=== PATIENT | male | born 1960 | race Caucasian/White ===

== ENCOUNTER 2019-05-04 21:09 | Inpatient (IN) ==
[2019-05-04 22:14] LABS: Basophils # (auto) 0.02 K/uL (0-0.2); Basophils % (auto) 0.3 %; Eosinophils # (auto) 0.26 K/uL (0-0.5); Eosinophils % (auto) 4.5 %; Hematocrit (blood only) 45.4 % (42-52); Hemoglobin 15.7 g/dL (14.0-18.0); Immature Granulocytes # (auto) 0.02 K/uL (0.00-0.02); Immature Granulocytes % (auto) 0.3 %; Lymphocytes # (auto) 1.42 K/uL (1.2-3.4); Lymphocytes % (auto) 24.4 %; Mean Corpuscular Hemoglobin 30.5 pg (25-34); Mean Corpuscular Hgb Conc 34.6 g/dL (32-36); Mean Corpuscular Volume 88.3 fL (80-100); Mean Platelet Volume 8.9 fL (7.4-10.4); Monocytes # (auto) 0.46 K/uL (0.11-0.59); Monocytes % (auto) 7.9 %; Neutrophils # (auto) 3.63 K/uL (1.4-6.5); Neutrophils % (auto) 62.6 %; Platelet Count 375 K/uL (130-400); RDW Coefficient of Variation 13.3 % (11.5-14.5); RDW Standard Deviation 42.7 fL (36.4-46.3); Red Blood Count 5.14 M/uL (4.7-6.1); White Blood Count 5.81 K/uL (4.8-10.8)
[2019-05-04 22:20] LABS: Appearance Urine Cloudy (Clear); Bacteria Urine Automated Negative (Negative); Bilirubin Urine Negative (Negative); Blood Urine Negative (Negative); Color Urine Yellow; Epithelial Cell Urine Auto 0-5 /lpf (0-5); Glucose Urine UA Negative (Negative); Ketones Urine Negative (Negative); Leukocyte Esterase Urine Negative (Negative); Nitrite Urine Negative (Negative); Protein Urine Negative (Negative); RBC Urine Automated 0-4 /hpf (0-4); Specific Gravity Urine 1.013 (1.000-1.030); Urobilinogen Urine Negative (Negative); WBC Urine Automated 0 /hpf (0-5); pH Urine 7.5 (4.5-7.5)
[2019-05-04 22:30] LABS: Albumin Level 4.1 gm/dl (3.4-5.0); BUN Creatinine Ratio 8.2 (10-20); Calcium 9.2 mg/dl (8.5-10.1); Creatinine Clr Calc Pharmacy 57.3 ml/min; Est GFR (African American) 71.6; Est GFR (Non-African American) 61.8; Potassium 3.7 mmol/L (3.5-5.1)
[2019-05-04 22:40] LABS: Albumin Globulin Ratio 1.1 (0.9-2); Bilirubin,Total 0.6 mg/dl (0.2-1); Globulin 3.7 gm/dl (2.5-4.0); Thyroid Stimulating Hormone 1.5 uIu/ml (0.300-4.500); Total Protein 7.8 gm/dl (6.4-8.2)
[2019-05-04 22:44] LABS: Amphetamines+Metham, Urine Neg (Neg); Barbiturates, Urine Neg (Neg); Benzodiazepine, Urine Neg (Neg); Cocaine, Urine Neg (Neg); MDMA (Ecstacy), Urine Neg (Neg); Methadone, Urine Neg (Neg); Opiate, Urine Neg (Neg); Phencyclidine, Urine Neg (Neg)
[2019-05-04 22:47] LABS: Acetaminophen < 2 ug/ml (10-30); Salicylate < 1.7 mg/dl (2.8-20)
--- NOTE | 2019-05-04 23:52 | Emergency Department Note ---
Entered by Lizeth Lieberman acting as a scribe for History of Present Illness General Chief complaint: Anxiety Stated complaint: ANXIETY Time Seen by Provider: 05/04/19 21:28 Source: patient and family (brother and sister) History of Present Illness Onset (ago): week(s) 1 Location: head Pain Consistency: + other (since his mother ) Quality: + other (anxiety) Associated symptoms: + other (Positive thoughts of SI with a plan (denies intent to act on these thoughts). ) The patient is a 59 year old male who presents to the ED with complaints of anxiety. He is accompanied by his brother and sister who report their mother recently 1 week ago today. 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 Since their mother's passing, his siblings reports he "changed overnight." His sister states last night she received a text from her brother stating I feel like I am not going to make it. His siblings believe he may have some thoughts of suicidal ideations. His sister reports he has tried antidepressants in the past. His siblings state that their father has a hx of going into catatonic states and they are worried the patient is beginning to go through the same thing. The patient states 40 years ago, he was seen at the hospital for hyponatremia. At this same time, he states it was recommended he come into the hospital for psychiatric care but he refused. He states since 1994, he has been under inc reased stress. He reports in 1994, his sister was diagnosed with schizophrenia and it caused his father to go into a catatonic state. The patient states he has had similar episodes like today in the past but he "could always push himself out of it." He reports since his mother's passing, he entered a "physical state, like he was going to pass away." The patient states he has had suicidal thoughts since he was young, but did not act on them because "his mother needed him." He states he does not think he would act on these thoughts because he "could not do it to his family." He reports his plan would be to shoot himself with a handgun, like his uncle did. The patient does not own a gun. Home Medications Home Medications Medication Instructions Recorded Confirmed Type ondansetron 4 mg PO UD PRN 05/18/18 05/04/19 History rizatriptan 5 mg PO UD PRN 09/04/18 05/04/19 History fluticasone furoate [Arnuity 1 inh INHALATION DAILY 03/16/19 05/04/19 History Ellipta] Allergies Allergy/AdvReac Type Severity Reaction Status Date / Time No Known Allergies Allergy Verified 03/16/19 04:13 Past Med/Surg History Medical History (Updated 05/05/19 @ 01:40 by Lizeth Lieberman) Anxiety Asthma Migraines Surgical History No pertinent past surgical history Family History Other FH: migraines Social History Preferred Language: [place] Feels Safe at Home: Yes Smoking Status: Never smoker Review of Systems See HPI for pertinent positives & negatives. and A total of 10 systems reviewed and were otherwise negative Physical Exam Vital Signs Vital Signs - 24 hr 05/04/19 21:13 05/05/19 00:55 Temperature 36.6 C Temperature Source Oral Pulse Rate 90 Pulse Rate [Right Finger] 65 Respiratory Rate 20 16 Respiratory Effort / Characteristics Non-Labored Spontaneous Non-Labored Spontaneous Respiratory Depth Normal Normal Respiratory Pattern Regular Regular Blood Pressure 186/94 H Blood Pressure [Left Arm] 132/85 Blood Pressure Mean 124 Blood Pressure Mean [Left Arm] 100 Blood Pressure Position Sitting Blood Pressure Position [Left Arm] Lying Pulse Oximetry 99 100 Oxygen Delivery Method Room Air Room Air Sepsis Recent Fever Within 48 Hours No Sepsis Action Taken by Nursing No Action Required GENERAL: Patient is in no acute distress. HEENT: No acute trauma, normocephalic atraumatic, mucous membranes moist, no nasal congestion, no scleral icterus. NECK: No stridor, no adenopathy, no meningismus, trachea is midline. LUNGS: Clear to auscultation bilaterally, no wheeze, no rhonchi, breath sounds equal. HEART: Without murmurs gallops or rubs, regular rate and rhythm. ABDOMEN: Soft, nontender, bowel sounds positive, no hernias, no peritonitis. EXTREMITIES: No cyanosis or edema, full range of motion of all the joints without pain or difficulty, no signs for acute trauma. NEUROLOGIC: Oriented x 3, no acute motor or sensory deficits, no focal weakness. PSYCH: Slow speaking. Cooperative, voluntary. Admits to suicidal ideations with no real plan or intent SKIN: No rash, no jaundice, no diaphoresis. Course Course 2129: Past medical records reviewed. The patient was evaluated in room A5. A complete history and physical exam was performed. 0030: I updated him on his labs at this time. [id number]: The patient will be further evaluated at [facility]. Administered Medications Medical Decision Making Differential Diagnosis Differential diagnosis: Etiologies such as drug and alcohol abuse, psychosis, schizophrenia, depression, anxiety, thyroid disorder, situational depression, as well as others were entertained. Medical Records Attestation: I reviewed the patient's medical records. Home Medications Current Medication List: was personally reviewed by me Laboratory Data Attestation: I reviewed the patient's lab results. Result diagrams: 05/04/19 22:02 05/04/19 22:02 Lab Results 05/04/19 05/04/19 05/04/19 Range/Units 21:35 21:35 22:02 WBC 5.81 (4.8-10.8) K/uL RBC 5.14 (4.7-6.1) M/uL Hgb 15.7 (14.0-18.0) g/dL Hct 45.4 (42-52) % MCV 88.3 (80-100) fL MCH 30.5 (25-34) pg MCHC 34.6 (32-36) g/dL RDW Std Deviation 42.7 (36.4-46.3) fL RDW Coeff of Jovan 13.3 (11.5-14.5) % Plt Count 375 (130-400) K/uL MPV 8.9 (7.4-10.4) fL Immature Gran % (Auto) 0.3 % Neut % (Auto) 62.6 % Lymph % (Auto) 24.4 % [place] % (Auto) 7.9 % Eos % (Auto) 4.5 % Baso % (Auto) 0.3 % Immature Gran # (Auto) 0.02 (0.00-0.02) K/uL Neut # (Auto) 3.63 (1.4-6.5) K/uL Lymph # (Auto) 1.42 (1.2-3.4) K/uL [place] # (Auto) 0.46 (0.11-0.59) K/uL Eos # (Auto) 0.26 (0-0.5) K/uL Baso # (Auto) 0.02 (0-0.2) K/uL Sodium (136-145) mmol/L Potassium (3.5-5.1) mmol/L Chloride (98-107) mmol/L Carbon Dioxide (21-32) mmol/L Anion Gap (3-11) BUN (7-18) mg/dl Creatinine (0.6-1.4) mg/dl Est Cr Clr Drug Dosing ml/min Est GFR ( Amer) Est GFR (Non-Af Amer) BUN/Creatinine Ratio (10-20) Glucose (70-99) mg/dl Calcium (8.5-10.1) mg/dl Total Bilirubin (0.2-1) mg/dl AST (15-37) U/L ALT (12-78) U/L Alkaline Phosphatase (45-117) U/L Total Protein (6.4-8.2) gm/dl Albumin (3.4-5.0) gm/dl Globulin (2.5-4.0) gm/dl Albumin/Globulin Ratio (0.9-2) TSH (0.300-4.500) uIu/ml Urine Color Yellow Urine Appearance Cloudy A (Clear) Urine pH 7.5 (4.5-7.5) Ur Specific [place] 1.013 (1.000-1.030) Urine Protein Negative (Negative) Urine Glucose (UA) Negative (Negative) Urine Ketones Negative (Negative) Urine Blood Negative (Negative) Urine Nitrite Negative (Negative) Urine Bilirubin Negative (Negative) Urine Urobilinogen Negative (Negative) Ur Leukocyte Esterase Negative (Negative) Urine WBC (Auto) 0 (0-5) /hpf Urine RBC (Auto) 0-4 (0-4) /hpf U Hyaline Cast (Auto) 1-5 (0-5) /lpf U Epithel Cells (Auto) 0-5 (0-5) /lpf Urine Bacteria (Auto) Negative (Negative) Salicylates (2.8-20) mg/dl Urine Opiates Screen Neg (Neg) Ur Methadone, Qual Neg (Neg) Acetaminophen (10-30) ug/ml Urine Barbiturates Neg (Neg) Ur Phencyclidine (PCP) Neg (Neg) U Amphetamin/Meth Scrn Neg (Neg) MDMA (Ecstasy) Screen Neg (Neg) U Benzodiazepines Scrn Neg (Neg) Ur Cocaine Metabolite Neg (Neg) U Marijuana (THC) Screen Neg (Neg) Ethyl Alcohol mg/dL (0-3) mg/dl 05/04/19 05/04/19 05/04/19 Range/Units 22:02 22:02 22:02 WBC (4.8-10.8) K/uL RBC (4.7-6.1) M/uL Hgb (14.0-18.0) g/dL Hct (42-52) % MCV (80-100) fL MCH (25-34) pg MCHC (32-36) g/dL RDW Std Deviation (36.4-46.3) fL RDW Coeff of Jovan (11.5-14.5) % Plt Count (130-400) K/uL MPV (7.4-10.4) fL Immature Gran % (Auto) % Neut % (Auto) % Lymph % (Auto) % [place] % (Auto) % Eos % (Auto) % Baso % (Auto) % Immature Gran # (Auto) (0.00-0.02) K/uL Neut # (Auto) (1.4-6.5) K/uL Lymph # (Auto) (1.2-3.4) K/uL [place] # (Auto) (0.11-0.59) K/uL Eos # (Auto) (0-0.5) K/uL Baso # (Auto) (0-0.2) K/uL Sodium 138 (136-145) mmol/L Potassium 3.7 (3.5-5.1) mmol/L Chloride 103 (98-107) mmol/L Carbon Dioxide 27 (21-32) mmol/L Anion Gap 8.0 (3-11) BUN 10 (7-18) mg/dl Creatinine 1.25 (0.6-1.4) mg/dl Est Cr Clr Drug Dosing 57.3 ml/min Est GFR ( Amer) 71.6 Est GFR (Non-Af Amer) 61.8 BUN/Creatinine Ratio 8.2 L (10-20) Glucose 125 H (70-99) mg/dl Calcium 9.2 (8.5-10.1) mg/dl Total Bilirubin 0.6 (0.2-1) mg/dl AST 17 (15-37) U/L ALT 18 (12-78) U/L Alkaline Phosphatase 67 (45-117) U/L Total Protein 7.8 (6.4-8.2) gm/dl Albumin 4.1 (3.4-5.0) gm/dl Globulin 3.7 (2.5-4.0) gm/dl Albumin/Globulin Ratio 1.1 (0.9-2) TSH 1.500 (0.300-4.500) uIu/ml Urine Color Urine Appearance (Clear) Urine pH (4.5-7.5) Ur Specific [place] (1.000-1.030) Urine Protein (Negative) Urine Glucose (UA) (Negative) Urine Ketones (Negative) Urine Blood (Negative) Urine Nitrite (Negative) Urine Bilirubin (Negative) Urine Urobilinogen (Negative) Ur Leukocyte Esterase (Negative) Urine WBC (Auto) (0-5) /hpf Urine RBC (Auto) (0-4) /hpf U Hyaline Cast (Auto) (0-5) /lpf U Epithel Cells (Auto) (0-5) /lpf Urine Bacteria (Auto) (Negative) Salicylates < 1.7 L (2.8-20) mg/dl Urine Opiates Screen (Neg) Ur Methadone, Qual (Neg) Acetaminophen < 2 L (10-30) ug/ml Urine Barbiturates (Neg) Ur Phencyclidine (PCP) (Neg) U Amphetamin/Meth Scrn (Neg) MDMA (Ecstasy) Screen (Neg) U Benzodiazepines Scrn (Neg) Ur Cocaine Metabolite (Neg) U Marijuana (THC) Screen (Neg) Ethyl Alcohol mg/dL < 3.0 (0-3) mg/dl ECG Data Attestation: I personally reviewed and interpreted this ECG as follows: Indication: + other (anxiety) Rate (beats per minute): 71 Rhythm: + sinus rhythm ECG ST segments: no ST elevation ECG Findings: + PVCs and + Other (QTC is 423) Blood Pressure Blood Pressure Findings: Elevated blood pressure Blood Pressure Disposition: Referred to patients primary care provider [facility] Narrative There is no leukocytosis or concerning anemia. No significant electrolyte abnormality or kidney failure. No worrisome liver enzyme elevation. The patient appears to be in a euthyroid state. Urinalysis does not show evidence for infection. Aspirin, Tylenol and alcohol levels were undetectable. Urine tox was negative. EKG shows a sinus rhythm with PVCs, no acute ischemia. The patient presents with increased depression and some suicidal ideation. He has been stressed by the of his mother. The patient is cooperative, he is voluntary. Hospitalization for his depression and suicidal ideation was thought warranted. The patient was been seen by psychiatry case management. A referral was made to [facility] [address] the patient has been accepted. The patient is being admitted voluntarily. Impression & Plan Depression, Suicidal ideation Discharge Plan Visit Data Chief Complaint: Anxiety Stated Complaint: ANXIETY ED Provider: Adriano Townsend Discharge Problem: Depression, Suicidal ideation Patient Disposition: Transfer Behavioral Health Fac Forms Stand Alone Forms: My [facility], Suicide Prevention Resources Prescriptions Prescriptions: No Action ondansetron 4 mg Tablet,Disintegrating 4 mg PO UD PRN (Reason: Nausea) RF: 0 rizatriptan 5 mg tablet,disintegrating 5 mg PO UD PRN (Reason: Migraine Headache) RF: 0 Arnuity Ellipta 100 mcg/actuation blister with device 1 inh inhalation DAILY RF: 0 Referrals Referrals: Andrew Naik MD [Primary Care Provider] - Discharge Problem: Depression Qualifiers: Depression Type: unspecified Qualified Code(s): F32.9 - Major depressive disorder, single episode, unspecified The scribe's documentation has been prepared under my direction and personally reviewed by me in its entirety. I confirm that the note above accurately reflects all work, treatment, procedures, and medical decision making performed by me.
[2019-05-05] MEDS ORDERED: MAGNESIUM HYDROXIDE SUSP 30 ML UDC PO PRN (02:44)
[2019-05-05] MEDS ORDERED: ACETAMINOPHEN 325 MG TAB PO PRN (02:44)
[2019-05-05] MEDS ORDERED: BISMUTH SUBSALICYLATE PER ML OMNICELL CHARGE PO PRN (02:44)
[2019-05-05] MEDS ORDERED: SODIUM CHLORIDE 0.65% NA SOLN 45 ML (OCEAN) PRN (02:44)
[2019-05-05] MEDS ORDERED: hydrOXYzine HCl 10 MG TAB PO PRN (02:44)
[2019-05-05] MEDS ORDERED: ALUMINUM/MAGNESIUM SUSP 30 ML UDC PO PRN (02:44)
[2019-05-05] MEDS ORDERED: ONDANSETRON 4 MG OD TAB PO PRN (15:16)
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
[2019-05-05] MEDS: MIRTAZAPINE TAB 15 MG TAB PO SCH (21:54)
[2019-05-06] MEDS: RIZATRIPTAN BENZOATE 10 MG TAB PO PRN (03:46)
--- NOTE | 2019-05-06 13:11 | Psychiatric Progress Note ---
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 He has had significant limitations in life due to the significant social anxiety and interpersonal ramifications of this and so has limited supports outside of his siblings and previously mother, which per Psych Clinic notes were also strained relationships. He has such significant anxiety that he feels he is falling apart and "feel like I am not going to make it" which is consistent with a psychotic personality structure under duress consistent with previously identified annihilation anxiety. The patient had SI chronically and as noted above although he stated a potential plan to use a gun to shoot himself he denies intention to acquire a gun. He does agree he may benefit from consideration of meds but has significant reservations given his prior lack of benefit from some meds and side effects from others. He is invested in his outpatient therapy relationship and plans to continue. We would need to inquire but it is likely he may be able to return to see Dr Soni for medication management after discharge. [facility] psychiatric admission remains medically necessary. (1) Suicidal ideation: 05/05 Inpatient care is least restrictive and most appropriate setting for his care He has submitted a 72hour notice and although I wish he would full agree to the LOS on his treatment plan of 4-6days he is not being unreasonable in his thoughts today. Given he does not have acts of furtherance and is able to share rationally what he is thinking and feeling and how he is making his decisions, I will not pursue a 302 at this time, but will use the next 3 days to monitor his status, offer treatment available on the unit and work with team to assure he has established aftercare. 05/06 - Denies present SI, recommending family meeting to discuss aftercare and safety planning (2) Depression: 05/05 MDD recurrent and Anxiety: Discussed remeron with r/b/se/a to include target his sleep and depression, off label may help anxiety and appetite, but need to monitor for weight gain, oversedation, pulse, and BP. discussed s/sx of serotonin syndrome in layman's terms and noted this was an urgent matter he would need to tell a medical professional about promptly if they emerged. Will continue to monitor for s/sx of catatonia (he is not demonstrating waxy flexibility and no posturing, no full Thought blocking, and vitals are not optimal but not unstable) Noted to patient if these s/sx emerged we would consider addition of ativan. 05/06 - Pt agreeable to continue mirtazapine at 7.5mg - as he feels headache last evening and grogginess this morning is due to medication - We reviewed side effect possibilities, but also that there may be multiple explanations for the symptoms reported above - pt agreeable to trial the medication for a bit longer (3) Anxiety: 05/05 - See treatment for depression as above 05/06 - Pt requesting clonazepam as it was felt to be helpful for several family members - Hydroxyzine availability was reviewed and patient was encouraged to utilize this medication for anxiety as needed (4) Migraines: 05/05 - continue outpatient meds (5) Asthma: 05/05 - Continue prn inhaler Risk Factors Assessment Male: Yes : Yes Do You Have Access To A Gun?: No Health Problems: Yes Mental Health Diagnoses: Yes Substance Use Disorders: No Previous Attempt: No Family History of Suicide: Yes Previous Psychiatric Hospitalization: No Hopelessness: No Smoker: No Protective Factors Assessment Sikh Beliefs: No : No Responsible for Young Children: No 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 He lives in his mother's home who is recently 1 week ago, and has a history of schizoid personality disorder, avoidant personality disorder, social anxiety and persistent depressive disorder. Pt was admitted on 05/05/19 01:37 on a 201 voluntary commitment for worsening anxiety and distress with associated suicidal ideations with thoughts to harm self with a gun, and text sent to his sister indicating distress "feel like I am not going to make it." Chief Complaint "I was feeling a little headachey last night." Review of Systems Notes Constitutional: reports headache last evening HEENT: mildly exacerbated tinnitus today Cardiovascular: denied Respiratory: denied Gastrointestinal: denied Neurological: denied Psychiatric: denies symptoms other than stated above Total of at least 10 systems reviewed, pertinent positives as above and in HPI. Sleep Information Total Hours of Sleep: 6.5 Sleep Comments: pt on q-15 minute checks Meal Information Percent Meal Consumed - Breakfast: 100 Percent Meal Consumed - Lunch: 100 Percent Meal Consumed - Dinner: 100 Subjective Subjective Patient was seen & assessed and interval progress reviewed with nursing and social work. Staff reports the patient submitted a 72-hour notice yesterday morning, which expires 05/08 at 10:27 AM. Patient has not yet participated in a family meeting with outpatient supports. He did verbalize to staff a migraine last evening, for which she received as needed medications. Patient was agreeable with a referral for a caser shoe parts, and is hoping to return to Dr. Soni for outpatient psychiatry. Patient was seen today to assess progress since admission. He reports that he was "headachey" last evening, believing this is related to the medication. He also admits to exacerbation of tinnitus. In his conversation, patient states that multiple medications have caused the side effects in the past. He initially requested to discontinue mirtazapine, but was agreeable to a conversation about the medication first. Patient was informed that there may be numerous explanations for his physical concerns last evening, and that there is limited evidence after only 1 dose to suggest that the symptoms will be persistent as he continues mirtazapine. Patient does admit that he "semi-slept okay" last evening and does feel that the addition of mi rtazapine may have been helpful for his sleep. Although the patient is not agreeable with considering titration of mirtazapine, he was agreeable with continuing a dose of 7.5 mg for another evening. Patient denies current suicidal ideation, but admits to ongoing anxiety. He does feel that he has adequate support outside of the hospital, and was encouraged to engage them in a meeting to discuss safety and discharge planning. Patient was given information regarding his 72-hour notice, inability to rescind the noticed should he feel additional time for treatment is necessary. Patient reports that although the anxiety is ongoing, "I feel as though the trajectory is good." Patient believes that by the time his 72-hour notice expires he will have adequate supports in place, and a plan with which to move forward. Patient denies other needs or concerns today. Physical Exam Psychiatric Orientation: alert, oriented x 3 and cooperative Apperance: appropriately dressed, appropriately groomed and appeared stated age Eye Contact: good eye contact Motor Behavior: steady gait and station and no abnormal motor movements Speech: normal rate/rhythm/volume of speech Affect: + anxious affect, + blunted affect and mood congruent with affect Mood: + anxious mood (reporting concern for cause of several physical complaints) Thought Process: goal directed thought process, clear/coherent thought process and thought association intact Thought Content: + preoccupation (with potential medication side effects); no hopelessness Suicidal Thoughts: denies suicidal thoughts and denies suicidal intent Homicidal Thoughts: denies homicidal thoughts Hallucinations: no auditory hallucinations and no visual hallucinations Cognition: attention grossly intact and language grossly intact Insight: + fair insight Judgement: + fair judgement Vital Signs (Past 24 Hours) Last Vital Signs Temp 36.8 C 05/06/19 06:46 Pulse 79 05/06/19 06:47 Resp 18 05/06/19 06:46 BP 125/83 05/06/19 06:47 Pulse Ox 96 05/05/19 02:16 Results & Data Current Inpatient Medications Current Inpatient Medications: Current Inpatient Medications Acetaminophen (Tylenol) 650 mg PO Q4H PRN PRN Reason: Headache or Minor Fever Stop: 06/04/19 02:43 Al Hydrox/Mg Hydrox/Simethicone (Maalox) 30 ml PO Q4H PRN PRN Reason: GI Upset Stop: 06/04/19 02:43 Bismuth Subsalicylate (Kaopectate) 15 ml PO PRN PRN PRN Reason: Loose Stool Stop: 06/04/19 02:43 Hydroxyzine HCl (Vistaril) 50 mg PO HSZ PRN PRN Reason: Insomnia Stop: 06/04/19 02:43 Hydroxyzine HCl (Vistaril) 25 mg PO Q4H PRN PRN Reason: Anxiety Stop: 06/04/19 02:43 Magnesium Hydroxide (Milk Of Magnesia) 30 ml PO DAILY PRN PRN Reason: Constipation Stop: 06/04/19 02:43 Mirtazapine (Remeron) 7.5 mg PO HS MARQUEZ Stop: 06/04/19 21:59 Last Admin: 05/05/19 21:54 Dose: 7.5 mg Documented by: Miscellaneous (Order Awaiting Action) 1 ea N/A QS MARQUEZ Stop: 06/04/19 15:59 Last Admin: 05/06/19 09:30 Dose: Not Given Documented by: Ondansetron HCl (Zofran Odt) 4 mg PO Q6H PRN PRN Reason: Nausea Stop: 06/04/19 15:15 Rizatriptan Benzoate (Maxalt) 10 mg PO DAILY PRN PRN Reason: MIGRAINE HEADACHE Stop: 06/04/19 15:08 Last Admin: 05/06/19 03:46 Dose: 10 mg Documented by: Sodium Chloride ([place] Nasal) 1 - 2 sprays NA PRN PRN PRN Reason: Nasal Dryness/Congestion Stop: 06/04/19 02:43 Mental Health & Subst Abuse Tx Psychiatrist Name of Psychiatrist: Dr. Soni [facility] Psych Clinic Psychiatrist's Therapist Name of Therapist: RUSSELL [facility], Sunday at 2pm Therapist's Date of Therapist Appointment: 05/13/19 Time of Therapist Appointment: 2:00pm Night Club Manager Name of Night Club Manager: [employer] Phone Number for Night Club Manager: [phone] Post Discharge Appointments Primary Care Physician [facility] Contact Information Discharge Discharge Address: [address] [place] [address] HELEN Alexandra [id number] (1) Depression Depression Type: unspecified Qualified Code(s): F32.9 - Major depressive disorder, single episode, unspecified
[2019-05-06] MEDS: MIRTAZAPINE TAB 15 MG TAB PO SCH (20:38)
[2019-05-07] MEDS: RIZATRIPTAN BENZOATE 10 MG TAB PO PRN (02:50)
--- NOTE | 2019-05-07 10:57 | Psychiatric Progress Note ---
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 He has had significant limitations in life due to the significant social anxiety and interpersonal ramifications of this and so has limited supports outside of his siblings and previously mother, which per Psych Clinic notes were also strained relationships. He has such significant anxiety that he feels he is falling apart and "feel like I am not going to make it" which is consistent with a psychotic personality structure under duress consistent with previously identified annihilation anxiety. The patient had SI chronically and as noted above although he stated a potential plan to use a gun to shoot himself he denies intention to acquire a gun. He does agree he may benefit from consideration of meds but has significant reservations given his prior lack of benefit from some meds and side effects from others. He is invested in his outpatient therapy relationship and plans to continue. We would need to inquire but it is likely he may be able to return to see Dr Soni for medication management after discharge. [facility] psychiatric admission remains medically necessary until aftercare can be established with prescriber, and therapy appt confirmed and family meeting as his living situation and rel with sister is a major source of stress and potential trigger for decompensation (1) Suicidal ideation: 05/05 Inpatient care is least restrictive and most appropriate setting for his care He has submitted a 72hour notice and although I wish he would full agree to the LOS on his treatment plan of 4-6days he is not being unreasonable in his thoughts today. Given he does not have acts of furtherance and is able to share rationally what he is thinking and feeling and how he is making his decisions, I will not pursue a 302 at this time, but will use the next 3 days to monitor his status, offer treatment available on the unit and work with team to assure he has established aftercare. 05/06 - Denies present SI, recommending family meeting to discuss aftercare and safety planning 05/07 - seems fixated on precision in details so he hesitates to say precisely how often SI enters his mind but is quick to say it is his baseline the last 2 days of intermittant thoughts, that he has no overt intention or plan of acting on and is future oriented. I would like christian to remain longer inpateint than 05/08/19 at 1027 when his 72hour notice expires for further support and assessment of tolerability of meds, however there are no acts of furtherance and no criteria as of today's assessment for 302 petition. We have raised question of signing in volunatrily for longer treatment, but patient declines. He is aware that if the administrative aspects of discharge (e.g. paperwork, securing precise aftercare) superceded 1027 he may be asked to consider signing in voluntairly to allow those details to be completed and is very reasonable about this concept in the rare case it arises, but that every effort would be made to krish 1027 discharge unless further evidence of danger to self or others arises or he signs in for longer treatment voluntarily. (2) Depression: 05/05 MDD recurrent and Anxiety: Discussed remeron with r/b/se/a to include target his sleep and depression, off label may help anxiety and appetite, but need to monitor for weight gain, oversedation, pulse, and BP. discussed s/sx of serotonin syndrome in layman's terms and noted this was an urgent matter he would need to tell a medical professional about promptly if they emerged. Will continue to monitor for s/sx of catatonia (he is not demonstrating waxy flexibility and no posturing, no full Thought blocking, and vitals are not optimal but not unstable) Noted to patient if these s/sx emerged we would consider addition of ativan. 05/06 - Pt agreeable to continue mirtazapine at 7.5mg - as he feels headache last evening and grogginess this morning is due to medication - We reviewed side effect possibilities, but also that there may be multiple explanations for the symptoms reported above - pt agreeable to trial the medication for a bit longer 05/07 - TOBISA prone on remeron but not having overt migraine, denies other side effects and is willing to continue at this time to his outpatient setting. Would ask team to discharge wtih 7.5mg pill so that if he has ongoing SE he could reduce to 3.75mg dose prior to f/u appt with Dr Soni rather than stopping it. Further mentioned option of loxapine in the future, however low doses are presently on national shortage so this is not an immediate option but may be in future when low doses are again available for slow and low titration. (3) Anxiety: 05/05 - See treatment for depression as above 05/06 and 05/07 - Pt requesting clonazepam as it was felt to be helpful for several family members - Hydroxyzine availability was reviewed and patient was encouraged to utilize this medication for anxiety as needed (4) Migraines: 05/05 - continue outpatient meds (5) Asthma: 05/05 - Continue prn inhaler Risk Factors Assessment Male: Yes : Yes Do You Have Access To A Gun?: No Health Problems: Yes Mental Health Diagnoses: Yes Substance Use Disorders: No Previous Attempt: No Family History of Suicide: Yes Previous Psychiatric Hospitalization: No Hopelessness: No Smoker: No Protective Factors Assessment Yarsani Beliefs: No : No Responsible for Young Children: No 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 He lives in his mother's home who is recently 1 week ago, and has a history of schizoid personality disorder, avoidant personality disorder, social anxiety and persistent depressive disorder. Pt was admitted on 05/05/19 01:37 on a 201 voluntary commitment for worsening anxiety and distress with associated suicidal ideations with thoughts to harm self with a gun, and text sent to his sister indicating distress "feel like I am not going to make it." Chief Complaint "I am okay". Review of Systems Sleep Information Total Hours of Sleep: 4.25 Sleep Comments: medicated for migraine headache management Meal Information Percent Meal Consumed - Breakfast: 100 Percent Meal Consumed - Lunch: 100 Percent Meal Consumed - Dinner: 100 Subjective Subjective Patient was seen & assessed and interval progress reviewed with treatment team. Rivas had TOBIAS Sunday into Sunday took m axalt, agreed to continue remeron 7.5mg and had mild TOBIAS through the day yesterday, upon waking to urinate last night he requested medication for TOBIAS as it was lingering "but not my full blown migraine." He notes that this lingering type of TOBIAS makes him feel "fragile" and he has to be mindful of smells and light and noise to avoid progression to a migraine, "just something that is in the background." However overall he feels somewhat improved meaning that compared to Sunday when he felt "like I am not going to make it," falling apart, hopeless and slowed mentally and physically, today his mood is 7/10 (would be 8/10 if he was not socially anxious on unit and due to anticipation anxiety of the family meeting today). He states he feels less slowed physically and is again "myself, socially anxious and smiling and intensely compassionate inside" sharing his concern for some patients here who have major medical concerns impacting their treatment, and yet he is not actively suicidal "still have my usual thoughts about suicide but not as intense, not as constant," and denies intention or plan, "my baseline with anxiety and mood and I have had the suicidal thoughts my whole life." He feels anxious in groups "my usual" but is participating, he feels "the good food here is helping," but has high anxiety about family meeting and prospect of living in a house wtih his sister. He told social work that he wondered if they would need a literal physical barrier put up to facilitate the living arrangment with clear separation. He denies other SE than residual TOBIAS today and "I hope it will go away." He states he is willing to persist to see if he gets further relief from it and "I can talk to Dr Soni about it too" He denies other physical concerns today. Physical Exam Psychiatric Orientation: alert and oriented x 3 Apperance: appropriately dressed Eye Contact: good eye contact Motor Behavior: steady gait and station he is more fluid today in his thoughts and his movements speech is regular rate and more fluid today, shy tone with sociallly anxious smile/laugh at times indicating embarassment like quality, but appropriate volume and rythm Affect: + anxious affect Mood: + anxious mood Thought Process: goal directed thought process and linear/logical thought process more spontaneous and fluid today compared to my interaction wtih him on Sunday, and more content in his spontaneous thoughts Thought Content: reality based without delusions has passive SI intermittantly lifelong feels he is at his baseline now and eda es intention or plan, does not give a specific frequency or quantity of his SI today "just happens" Homicidal Thoughts: denies homicidal thoughts Hallucinations: no auditory hallucinations and no visual hallucinations Cognition: recent memory grossly intact Estimated Intelligence: average estimated intelligence Insight: good insight Judgement: good judgement Vital Signs (Past 24 Hours) Last Vital Signs Temp 36.7 C 05/07/19 06:37 Pulse 88 05/07/19 06:37 Resp 18 05/07/19 06:37 BP 136/81 05/07/19 06:37 Pulse Ox 96 05/05/19 02:16 Results & Data Current Inpatient Medications Current Inpatient Medications: Current Inpatient Medications Acetaminophen (Tylenol) 650 mg PO Q4H PRN PRN Reason: Headache or Minor Fever Stop: 06/04/19 02:43 Al Hydrox/Mg Hydrox/Simethicone (Maalox) 30 ml PO Q4H PRN PRN Reason: GI Upset Stop: 06/04/19 02:43 Bismuth Subsalicylate (Kaopectate) 15 ml PO PRN PRN PRN Reason: Loose Stool Stop: 06/04/19 02:43 Hydroxyzine HCl (Vistaril) 50 mg PO HSZ PRN PRN Reason: Insomnia Stop: 06/04/19 02:43 Hydroxyzine HCl (Vistaril) 25 mg PO Q4H PRN PRN Reason: Anxiety Stop: 06/04/19 02:43 Magnesium Hydroxide (Milk Of Magnesia) 30 ml PO DAILY PRN PRN Reason: Constipation Stop: 06/04/19 02:43 Mirtazapine (Remeron) 7.5 mg PO HS MARQUEZ Stop: 06/04/19 21:59 Last Admin: 05/06/19 20:38 Dose: 7.5 mg Documented by: Miscellaneous (Order Awaiting Action) 1 ea N/A QS MARQUEZ Stop: 06/04/19 15:59 Last Admin: 05/06/19 17:08 Dose: Not Given Documented by: Ondansetron HCl (Zofran Odt) 4 mg PO Q6H PRN PRN Reason: Nausea Stop: 06/04/19 15:15 Rizatriptan Benzoate (Maxalt) 10 mg PO DAILY PRN PRN Reason: MIGRAINE HEADACHE Stop: 06/04/19 15:08 Last Admin: 05/07/19 02:50 Dose: 10 mg Documented by: Sodium Chloride ([place] Nasal) 1 - 2 sprays NA PRN PRN PRN Reason: Nasal Dryness/Congestion Stop: 06/04/19 02:43 Mental Health & Subst Abuse Tx Psychiatrist Name of Psychiatrist: Dr. Soni [facility] Psych Clinic Psychiatrist's Therapist Name of Therapist: Marta Quintero [facility] Psych Clinic, Sunday at 2pm Therapist's Date of Therapist Appointment: 05/13/19 Time of Therapist Appointment: 2:00pm Roll Bucker Name of Roll Bucker: [employer] Phone Number for Roll Bucker: [phone] Post Discharge Appointments Primary Care Physician Name Of Family Doctor: Dr. Andrew Jordan [facility] Primary Care Contact Information Discharge Discharge Address: [address] [place] [address] [place] [phone] (1) Depression Depression Type: unspecified Qualified Code(s): F32.9 - Major depressive disorder, single episode, unspecified
[2019-05-07] MEDS: MIRTAZAPINE TAB 15 MG TAB PO SCH (22:05)
[2019-05-08] MEDS: RIZATRIPTAN BENZOATE 10 MG TAB PO PRN (09:52)
--- NOTE | 2019-05-08 11:10 | Discharge Summary ---
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 Forms: My [facility] [employer], Smoking Cessation, Suicide Prevention Resources Medications and DC Order Prescriptions: New hydroxyzine HCl 25 mg Tablet 12.5 mg PO Q4H PRN (Reason: Anxiety) Qty: 30 RF: 1 mirtazapine 15 mg Tablet 7.5 mg PO HS 30 Days Qty: 15 RF: 0 Continued ondansetron 4 mg Tablet,Disintegrating 4 mg PO UD PRN (Reason: Nausea) RF: 0 rizatriptan 5 mg tablet,disintegrating 10 mg PO UD PRN (Reason: Migraine Headache) RF: 0 prednisone 10 mg Tablet 10 mg PO DAILY MDD 20 mg PRN (Reason: Migraine Headache) RF: 0 fluticasone propionate 50 mcg/actuation spray,suspension 2 spray INTRANASAL DAILY RF: 0 Arnuity Ellipta 100 mcg/actuation blister with device 1 inh INHALATION DAILY RF: 0 Discharge Orders: Discharge Order (Routine); Ordered 05/08/19 Ordered By: Noman Vasquez Admission Data Admit Date/Time: 05/05/19 01:37 Attending Provider: Natasha Huynh Admit Provider: Rosmery Downey Primary Care Provider: Andrew Naik Other Interventions: Discharge Summary Assessment (RN) Last Done: 05/08/19 08:21 PSY Interdisciplinary Discharge Planning Last Done: 05/08/19 09:11 DC Date/Time DO NOT enter until pt leaves facility: 05/08/19 10:25 Coding [place] [address] D/C day mgmt > 30 min Patient Type Established History Expanded Problem Focused Exam Expanded Problem Focused Medical Decision Making Moderate Complexity Diagnoses Suicidal ideation R45.851 Depression F32.9 Depression Type: unspecified Anxiety F41.9 Migraines G43.909 Asthma J45.909 Time Spent (min) 45
== END 2019-05-08 10:25 | disposition home or self-care (01) | DRG 885 ==
LOC: ED 21:09 → 3S 05-05 01:37